=== PATIENT | male | born 1985 | race Caucasian/White ===

== ENCOUNTER 2017-12-02 07:31 | Emergency (ER) | payer OTHER, SELFPAY ==
[2017-12-02] MEDS ORDERED: Proparacaine 0.5% Opth 15 ML BOT ONE (07:42)
[2017-12-02] MEDS ORDERED: Fluorescein Opthalmic Strip ONE (07:42)
== END 2017-12-02 08:44 | disposition home or self-care (01) ==
LOC: ERS 07:31
DX: T15.02XA Foreign body in cornea, left eye, initial encounter (principal); F41.9 Anxiety disorder, unspecified; F17.210 Nicotine dependence, cigarettes, uncomplicated
CPT/HCPCS: 65222

== ENCOUNTER 2018-01-21 12:15 | Emergency (ER) | payer OTHER, SELFPAY ==
[2018-01-21] MEDS ORDERED: Adacel (T-DAP) 0.5 ML VIAL ONE (12:50)
[2018-01-21] MEDS ORDERED: Lidocaine 1% w/Epinephrine 1:100K 20 ML VIAL ONE (12:50)
[2018-01-21] MEDS ORDERED: Acetaminophen 500 MG TAB ONE (12:55)
[2018-01-21] MEDS ORDERED: Lorazepam 2 MG/ML VIAL ONE (13:13)
--- NOTE | 2018-01-21 13:50 | CT ---
CT BRAIN NONCONTRAST: DATE: 01-21-18 HISTORY: 32-year-old male with headache. FINDINGS: The ventricles are normal in size and configuration. There is no midline shift or any other mass eff ect. There is no evidence of acute intracranial hemorrhage, large cortical infarct, or extraaxial fl uid collection. The navarro matter /white matter differentiation is maintained. The calvarium is intac t. The tympanomastoid cavities, and the upper portions of the paranasal sinuses included in these im ages, are grossly clear. There is a tiny round metallic foreign body in the forehead, to the right of midline in the soft tissues superficial to the right frontal sinus. This was present on previous CT of 01-30-13. IMPRESSION: 1. Old retained foreign body (bb) in the right anterior inferior frontal scalp. 2. Otherwise normal. kelsie POS: [facility]
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
== END 2018-01-21 14:39 | disposition home or self-care (01) ==
LOC: ERS 12:15
DX: S01.81XA Laceration without foreign body of other part of head, initial encounter (principal); F41.9 Anxiety disorder, unspecified; F17.210 Nicotine dependence, cigarettes, uncomplicated; W22.8XXA Striking against or struck by other objects, initial encounter; Y99.0 Civilian activity done for income or pay
CPT/HCPCS: 12011; 70450; 70486; 90471; 90715; 96372; J2001; J2060

== ENCOUNTER 2018-06-13 13:42 | Emergency (ER) | payer OTHER, SELFPAY ==
[~2018-06-13 13:42] MED LIST: ISOVUE-370 76%-LOCM 1 ML ONE
[2018-06-13 14:04] LABS: #Basophils 0.1 thou/uL (0.0-0.2); #Eosinphils 0.3 thou/uL (0.0-0.7); #Lymphocytes 2.7 thou/uL (1.20-3.40); #Monocytes 1.3 thou/uL (0.11-0.59); #Neutrophils 7.2 thou/uL (1.40-6.50); %Basophils 0.8 % (0.0-1.0); %Eosinophils 2.2 % (0.0-10.0); %Lymphocytes 23.6 % (21.0-51.0); %Monocytes 11.3 % (0.0-10.0); %Neutrophils 62.1 % (42.0-75.0); Mean Corpuscular HGB CONC 33.7 g/dL (32.0-36.0); Mean Platelet Volume 6.3 fL (7.4-10.4); Platelet Count 325 thou/uL (130-400); RBC Distribution Width 12.7 % (11.5-14.5); Red Blood Cell (RBC) Count 5.01 mill/uL (4.70-6.10); White Blood Cell (WBC) Count 11.5 thou/uL (4.8-10.8)
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
[2018-06-13 14:31] LABS: ALT (SGPT) 24 U/L (8-55); AST (SGOT) 20 U/L (5-34); Acetaminophen Less than 6.0 mcg/mL (10.0-30.0); Albumin 4.3 g/dL (3.5-5.0); Alcohol Less than 10 mg/dL (Less than 10); Alkaline Phosphatase 78 U/L (40-150); Anion Gap 13 mmol/L (10-20); BUN (Urea Nitrogen) 18 mg/dL (8.9-20.6); Bilirubin, Total 1.1 mg/dL (0.2-1.2); Calc. Creatinine Clearance 0 mL/min (70-130); Calcium 9.2 mg/dL (7.8-10.44); Carbon Dioxide 25 mmol/L (22-29); Chloride 104 mmol/L (98-107); Estimated GFR-MDRD 87; Globulin 3.2 g/dL (2.4-3.5); Glucose 169 mg/dL (70-105); Lipase 41 U/L (8-78); Potassium 3.5 mmol/L (3.5-5.1); Protein, Total 7.5 g/dL (6.0-8.3); Salicylate Less than 8.0 mg/dL (15.0-30.0); Sodium 138 mmol/L (136-145)
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
[2018-06-13 15:26] LABS: Amphetamine Detected (NotDetected); Barbiturates Screen Not Detected (NotDetected); Benzodiazepine Screen Detected (NotDetected); Cocaine Metabolite Screen Not Detected (NotDetected); Medtox Control Line Valid? VALID (VALID); Medtox Reader # READER 1; Methadone Not Detected (NotDetected); Methamphetamine Detected (NotDetected); Opiate Screen Detected (NotDetected); Oxycodone Screen Not Detected (NotDetected); Phencyclidine (PCP) Not Detected (NotDetected); THC/Cannabinoid Screen Not Detected (NotDetected); Tricyclic Screen Not Detected (NotDetected)
--- NOTE | 2018-06-18 12:23 | EKG ---
Test Reason : Blood Pressure : / mmHG Vent. Rate : 110 BPM Atrial Rate : 110 BPM P-R Int : 134 ms QRS Dur : 078 ms QT Int : 324 ms P-R-T Axes : 052 068 020 degrees QTc Int : 438 ms Sinus tachycardia Anterior infarct , age undetermined Abnormal ECG Confirmed by LEATHA ZELAYA ([id number]), videotape editor MILLICENT ORTEGA ([id number]) on 06/18/2018 12:23:10 PM Referred By: Confirmed By:LEATHA ZELAYA
== END 2018-06-13 15:37 | disposition home or self-care (01) ==
LOC: ERS 13:42
DX: S70.01XA Contusion of right hip, initial encounter (principal); R07.9 Chest pain, unspecified; Z71.6 Tobacco abuse counseling; F41.9 Anxiety disorder, unspecified; F17.210 Nicotine dependence, cigarettes, uncomplicated; V49.9XXA Car occupant (driver) (passenger) injured in unspecified traffic accident, initial encounter
CPT/HCPCS: 70450; 71260; 72125; 74177; 80053; 80306; 80307; 83690; 85025; 93005; 96360; 99406